=== PATIENT | male | born 1995 | race Caucasian/White ===

== ENCOUNTER → 2018-07-05 | Outpatient (CLI) | payer BC, OTHER ==
[~2018-07-05] MED LIST: ATIVAN1 MG PO; LOPRESSOR25 PO; NOHOMEMEDICATIONS; PROMS25 WY RECTAL; VISTARIL 25 MG25 M1 PO; ZOFRAN ODT4 MG PO
== END ==
LOC: CAT 06-07 11:00 → MRI 09:28
DX: J34.89 Other specified disorders of nose and nasal sinuses (principal); Z86.59 Personal history of other mental and behavioral disorders